=== PATIENT | female | born 1985 | race African-American/Black ===

== ENCOUNTER 2019-02-08 17:55 | Emergency (ER) | payer SELFPAY ==
[~2019-02-08] VITALS: Ht 177.8 cm; Wt 78.2 kg
[2019-02-08] MEDS ORDERED: PROB250C PO (18:04)
[2019-02-08] MEDS ORDERED: prenatal (18:04)
[2019-02-08 18:42] LABS: BASO # 0.1 10^3/uL (0.0-0.2); BASO % 0.4 % (0.0-1.0); EOS # 0.2 10^3/uL (0.0-0.50); EOS % 1.4 % (0.0-3.0); HEMATOCRIT 36.8 % (36.0-47.0); HEMOGLOBIN 12.4 g/dl (12.0-15.5); LYMPH # 2.7 10^3/uL (1.5-4.5); LYMPH % 22.3 % (24.0-44.0); MEAN CORPUSCULAR HEMOGLOBIN 31.3 pg (27.0-33.0); MEAN CORPUSCULAR HGB CONC 33.7 g/dl (32.0-36.5); MEAN CORPUSCULAR VOLUME 92.9 fl (80.0-96.0); MONO # 0.8 10^3/uL (0.0-0.8); MONO % 6.8 % (0.0-5.0); NEUTROPHILS # 8.4 10^3/uL (1.8-7.7); NEUTROPHILS % 68.4 % (36.0-66.0); PLATELET COUNT, AUTOMATED 259 10^3/uL (150-450); RED BLOOD COUNT 3.96 10^6/uL (4.00-5.40); WHITE BLOOD COUNT 12.3 10^3/uL (4.0-10.0)
[2019-02-08 19:04] LABS: ALT/SGPT 18 U/L (12-78); BILIRUBIN,DIRECT < 0.1 MG/DL (0.0-0.2); BILIRUBIN,TOTAL 0.2 MG/DL (0.2-1.0); BLOOD UREA NITROGEN 6 MG/DL (7-18); CALCIUM LEVEL 8.6 MG/DL (8.5-10.1); CARBON DIOXIDE LEVEL 26 MEQ/L (21-32); CHLORIDE LEVEL 107 MEQ/L (98-107); CREATININE FOR GFR 0.64 MG/DL (0.55-1.30); GLOMERULAR FILTRATION RATE > 60.0 (>60); GLUCOSE, FASTING 76 MG/DL (70-100); LIPASE 215 U/L (73-393); POTASSIUM SERUM 4.3 MEQ/L (3.5-5.1); SODIUM LEVEL 140 MEQ/L (136-145); TOTAL PROTEIN 6.6 GM/DL (6.4-8.2)
--- NOTE | 2019-02-08 23:28 | REPVR ---
EXAM: US First Trimester, Transabdominal EXAM DATE/TIME: 02/08/2019 10:12 PM CLINICAL HISTORY: 33 years old, female; complicated by abdominal or pelvic pain; Lower; Second trimester; Gestational age or lmp: Lmp 10/20/18; ; Additional info: Pelvic pain; Lmp- 10/20/18 TECHNIQUE: Imaging protocol: Real-time transabdominal obstetrical ultrasound of the maternal pelvis and a first trimester , less than 14 weeks 0 days, with image documentation. COMPARISON: No relevant prior studies available. FINDINGS: Biometry BPD = 3.33 cm; Estimated Menstrual Age = 16 w 2 d; HC = 12.76 cm; Estimated Menstrual Age = 16 w 3 d; AC = 11 cm; Estimated Menstrual Age = 16 w 6 d; FL = 1.97 cm; Estimated Menstrual Age = 15 w 6 d; HC/AC Ratio = 1.16 (1.05-1.39) EFW = 155 g (64 percentile) Amniotic fluid = qualitatively normal Placenta: Posterior and free of the cervical os HR = 152 bpm Presentation: Breech Survey Not performed IMPRESSION: 1. Single live intrauterine with an estimated menstrual age of 16 weeks and 2 days with an expected date of delivery 07/24/2019. 2. survey not performed due to early gestational age 3. Breech presentation Electronically signed by: Paula Hayes On 02/08/2019 23:27:52 PM
[2019-02-08 23:30] VITALS: BP 110/65
== END 2019-02-08 23:32 | disposition home or self-care (01) ==
LOC: M ED 17:55
DX: O26.892 Other specified pregnancy related conditions, second trimester (principal); Z87.891 Personal history of nicotine dependence; Z3A.16 16 weeks gestation of pregnancy; Z79.899 Other long term (current) drug therapy

== ENCOUNTER 2019-06-12 20:09 | Outpatient (CLI) | payer BC ==
[~2019-06-12 20:09] MED LIST: PROB250C PO; prenatal
[2019-06-12 20:31] VITALS: BP 115/60
[2019-06-12] MEDS ORDERED: ACETAMINOPHEN 500 MG TAB PO ONE (21:00)
[2019-06-12] MEDS ORDERED: ONDANSETRON 4 MG ORAL DISINTEGRATING TAB (Q0162 PER 1MG) PO ONE (21:00)
--- NOTE | 2019-06-12 21:00 | IPNPDOC ---
Text Note Date of Service The patient was seen on 06/12/19. NOTE 34 yo at 33+4 weeks presented to triage via ambulance with the complaint of a severe migraine accompanied by nausea along with decreased movement. She reports not feeling much movement at all today and her baby usually moves all the time. She has a history of severe migraines, though these have improved in her until this evening. Her migraines frequently result in blurred vision and photophobia, and this currently happening. She denies any vaginal bleeding, pelvic pain, or leakage of fluid. Vitals - VSS, afebrile, normotensive, non tachycardic General - AAOX3, sitting up in bed, eyes closed. Neuro - CN II - XII intact Abdomen - Gravid uterus, no fundal tenderness Extremities - No edema FHR tracing - Cat I with moderate variability, +accels, no decels Bedside TAUS - SIUP in cephalic presentation. GLEN 13.2cm. BPP 8/8. Very active baby. Patient felt significant movement in triage and was reassured. She was given tylenol, benadryl, compazine, and zofran for her headache and nausea with significant improvement in symptoms. She did not have a ride home since she came by ambulance. Her migraines cause her blurred vision. There is no concern for neurologic deficit, however she has no transportation home and would not be safe to drive herself home anyway due to her current vision status. She has no friends or family in the area and her is geographically . Will keep her for observation overnight. If she feels well tomorrow, we will work on transportation home. DO IVET Bradley Fishbone, I+O IVET, Tabby, I+O Vital Signs Date Time Temp Pulse Resp B/P (MAP) Pulse Ox O2 Delivery O2 Flow Rate FiO2 06/12/19 20:31 98.3 74 115/60 (78) REFUGIO BRADLEY DO Jun 12, 2019 21:00
[2019-06-12] MEDS ORDERED: PROCHLORPERAZINE 5 MG TAB (S0183) PO ONE (23:00)
[2019-06-12] MEDS ORDERED: diphenhydrAMINE 50 MG CAP PO ONE (23:00)
[2019-06-12 23:19] VITALS: BP 110/54
[2019-06-13 04:31] VITALS: BP 120/58
--- NOTE | 2019-06-13 06:43 | IPNPDOC ---
Text Note Date of Service The patient was seen on 06/13/19. NOTE Patient seen this AM. No acute events overnight. Ms. Elkins reports feeling tired. Headache has improved significantly, but blurry vision remains. VSS, afebrile, normotensive. FHR Cat I throughout intermittent monitoring. Patient endorses lots of movement. Will consult medicine for assistance with migraine management and visual problems. So acute neurologic concerns. DO Kirk VS,Tabby, I+O VS, [place], I+O Vital Signs Date Time Temp Pulse Resp B/P (MAP) Pulse Ox O2 Delivery O2 Flow Rate FiO2 06/13/19 04:31 98.4 63 120/58 (78) REFUGIO PROCTOR DO Jun 13, 2019 06:43
[2019-06-13] MEDS ORDERED: ACETAMINOPHEN 500 MG TAB PO ONE (08:45)
--- NOTE | 2019-06-13 10:43 | IPNPDOC ---
Text Note Date of Service The patient was seen on 06/13/19. NOTE Ms. Elkins did not want to wait for the internal medicine evaluation regarding her blurred vision. She desired to call an [employer] and return home. She reports her will be home tomorrow and it will be the first time they have seen each other for many months. She reports feeling better this morning and has no obstetric complaints. Vision still somewhat blurry however. Vitals - VSS, afebrile, normotensive, non tachycardic AM FHR monitoring - Cat I, with moderate variability, +accels, no decels. status reassuring and Ms. Elkins has improved symptoms. She desires to return home. She will be driven by [employer]. Follow up at next OB appointment as scheduled. Return to care sooner for any urgent concerns. DO Kirk VS,Tabby, I+O VS, Tabby, I+O Vital Signs Date Time Temp Pulse Resp B/P (MAP) Pulse Ox O2 Delivery O2 Flow Rate FiO2 06/13/19 04:31 98.4 63 120/58 (78) REFUGIO PROCTOR DO Jun 13, 2019 10:43
== END 2019-06-13 09:35 | disposition home or self-care (01) ==
LOC: M LDO 20:09 → M LDI 23:01 → M LDO 06-13 09:35
PROVIDERS: ATTEND Obstetrics & Gynecology
DX: O36.8130 Decreased fetal movements, third trimester, not applicable or unspecified (principal); O99.89 Other specified diseases and conditions complicating pregnancy, childbirth and the puerperium; G43.909 Migraine, unspecified, not intractable, without status migrainosus; H53.8 Other visual disturbances; O21.2 Late vomiting of pregnancy; Z3A.33 33 weeks gestation of pregnancy; O99.353 Diseases of the nervous system complicating pregnancy, third trimester; O26.893 Other specified pregnancy related conditions, third trimester
CPT/HCPCS: 59025; 76815; G0463; Q0162